=== PATIENT | female | born 1990 | race African-American/Black ===

== ENCOUNTER 2017-11-01 23:40 | Emergency (ER) | payer BC ==
[~2017-11-01] VITALS: Ht 170.2 cm; Wt 75.1 kg
[2017-11-02 00:43] VITALS: BP 147/82
== END 2017-11-02 00:43 | disposition home or self-care (01) ==
LOC: EME 23:40
DX: G89.18 Other acute postprocedural pain (principal); R68.84 Jaw pain; Z98.890 Other specified postprocedural states
CPT/HCPCS: 99281; 99284